=== PATIENT | female | born 1975 | race Caucasian/White ===

== ENCOUNTER 2017-11-19 14:40 | Emergency (ER) | payer SELFPAY ==
[~2017-11-19] VITALS: Ht 170.2 cm; Wt 132.0 kg
[~2017-11-19 14:40] MED LIST: ASPI1POW8 PO; NABU1TAB37 PO
[2017-11-19 14:43] VITALS: BP 181/90; PULSE 90; RESP 18; TEMP 98.1; O2SAT 97
[2017-11-19] MEDS ORDERED: SODIUM CHLOR 0.9% 1000 ML INJ 1,000 ML IV SCH (14:58)
[2017-11-19] MEDS ORDERED: SODIUM CHLORIDE 0.9% FLUSH 10 ML FLUSH IV FLUSH PRN (15:00)
[2017-11-19] MEDS ORDERED: PROMETHAZINE INJ 25 MG/ML VIAL IM ONE (15:00)
--- NOTE | 2017-11-19 15:16 | PD ---
HPI Chief Complaint: GI Complaint Time Seen by Provider: 14:58 Travel History International Travel<30 days: No Contact w/Intl Traveler<30days: No Traveled to known affect area: No History of Present Illness HPI 42-year-old female patient with history of diverticulitis, presents to the ER today for several days history of nausea, vomiting, diarrhea, and 8 out of 10 lower abdominal pains that started yesterday. She denies any fevers. She denies any other symptoms. She states that it feels similar to the past episode of diverticulitis. She does not know of any exacerbating or relieving factors. She denies any sick contacts or bad food exposure. Modifying Factors: None Associated Signs & Symptoms: Nausea, vomiting, diarrhea, abdominal pain Risk Factors: History of diverticulitis PFSH Past Medical History Diminished Hearing: No Diverticulitis: Yes Influenza Vaccination: No ?: Not Past Surgical History Surgical History: No Previous Surgery Hysterectomy: Yes Social History Alcohol Use: No Tobacco Use: No Allergies-Medications (Allergen,Severity, Reaction): Coded Allergies: cortisone (Unverified Allergy, Severe, HIVES AND DELUSIONS, 11/19/17) Reported Meds & Prescriptions Reported Meds & Active Scripts Active No Active Prescriptions or Reported Medications Review of Systems Except as stated in HPI: all other systems reviewed are Neg Physical Exam Narrative GENERAL: Well-developed middle-age female patient currently in moderate distress. Awake and oriented 3. SKIN: Focused skin assessment warm/dry. HEAD: Atraumatic. Normocephalic. EYES: Pupils equal and round. No scleral icterus. No injection or drainage. ENT: No nasal bleeding or discharge. Mucous membranes pink and moist. NECK: Trachea midline. No JVD. Supple. CARDIOVASCULAR: Regular rate and rhythm. No murmur appreciated. RESPIRATORY: No accessory muscle use. Clear to auscultation. Breath sounds equal bilaterally. GASTROINTESTINAL: Abdomen soft, mild lower abdominal tenderness without guarding rebound, nondistended. Hepatic and splenic margins not palpable. MUSCULOSKELETAL: No obvious deformities. No clubbing. No cyanosis. No edema. NEUROLOGICAL: Awake and alert. No obvious cranial nerve deficits. Motor grossly within normal limits. Normal speech. PSYCHIATRIC: Appropriate mood and affect; insight and judgment normal. Data Data Last Documented VS Vital Signs Date Time Temp Pulse Resp B/P (MAP) Pulse Ox O2 Delivery O2 Flow Rate FiO2 11/19/17 17:19 70 18 167/69 (101) 99 Room Air 11/19/17 14:43 98.1 Orders Orders Complete Blood Count With Diff (11/19/17 14:58) Comprehensive Metabolic Panel (11/19/17 14:58) Lipase (11/19/17 14:58) Urinalysis - C+S If Indicated (11/19/17 14:58) Ct Abd/Pel W Iv Contrast(Rout) (11/19/17 14:58) Iv Access Insert/Monitor (11/19/17 14:58) Ecg Monitoring (11/19/17 14:58) Oximetry (11/19/17 14:58) Sodium Chlor 0.9% 1000 Ml Inj (Ns 1000 M (11/19/17 14:58) Sodium Chloride 0.9% Flush (Ns Flush) (11/19/17 15:00) Promethazine Inj (Phenergan Inj) (11/19/17 15:00) Dicyclomine Inj (Bentyl Inj) (11/19/17 15:30) Ondansetron Inj (Zofran Inj) (11/19/17 15:45) Potassium Chlor 20 Meq Premix (Kcl 20 Me (11/19/17 16:00) Morphine Inj (Morphine Inj) (11/19/17 16:30) Metoclopramide Inj (Reglan Inj) (11/19/17 16:30) Iohexol 350 Inj (Omnipaque 350 Inj) (11/19/17 16:40) Ketorolac Inj (Toradol Inj) (11/19/17 17:30) Ed Discharge Order (11/19/17 17:21) Labs Laboratory Tests Test 11/19/17 15:10 11/19/17 15:20 Urine Color YELLOW Urine Turbidity CLEAR Urine pH 5.5 Urine Specific [place] GREATER/EQUAL 1.030 Urine Protein 30 mg/dL Urine Glucose (UA) NEG mg/dL Urine Ketones 40 mg/dL Urine Occult Blood SMALL Urine Nitrite NEG Urine Bilirubin NEG Urine Urobilinogen 0.2 MG/DL Urine Leukocyte Esterase NEG Urine RBC 3-5 /hpf Urine WBC 0-2 /hpf Urine Squamous Epithelial Cells 0-5 /hpf Urine Bacteria NONE /hpf Microscopic Urinalysis Comment CULT NOT INDICATED White Blood Count 12.3 TH/MM3 Red Blood Count 5.18 MIL/MM3 Hemoglobin 15.4 GM/DL Hematocrit 47.0 % Mean Corpuscular Volume 90.7 FL Mean Corpuscular Hemoglobin 29.8 PG Mean Corpuscular Hemoglobin Concent 32.9 % Red Cell Distribution Width 12.4 % Platelet Count 231 TH/MM3 Mean Platelet Volume 7.3 FL Neutrophils (%) (Auto) 88.7 % Lymphocytes (%) (Auto) 6.9 % Monocytes (%) (Auto) 3.7 % Eosinophils (%) (Auto) 0.5 % Basophils (%) (Auto) 0.2 % Neutrophils # (Auto) 10.9 TH/MM3 Lymphocytes # (Auto) 0.8 TH/MM3 Monocytes # (Auto) 0.5 TH/MM3 Eosinophils # (Auto) 0.1 TH/MM3 Basophils # (Auto) 0.0 TH/MM3 CBC Comment DIFF FINAL Differential Comment Blood Urea Nitrogen 11 MG/DL Creatinine 1.10 MG/DL Random Glucose 137 MG/DL Total Protein 9.0 GM/DL Albumin 4.3 GM/DL Calcium Level 9.5 MG/DL Alkaline Phosphatase 107 U/L Aspartate Amino Transf (AST/SGOT) 20 U/L Alanine Aminotransferase (ALT/SGPT) 26 U/L Total Bilirubin 0.5 MG/DL Sodium Level 139 MEQ/L Potassium Level 2.9 MEQ/L Chloride Level 106 MEQ/L Carbon Dioxide Level 24.4 MEQ/L Anion Gap 9 MEQ/L Estimat Glomerular Filtration Rate 54 ML/MIN Lipase 188 U/L MDM Medical Decision Making Medical Screen Exam Complete: Yes Emergency Medical Condition: Yes Medical Record Reviewed: Yes Interpretation(s) Laboratory Tests Test 11/19/17 15:10 11/19/17 15:20 Urine Protein 30 mg/dL (NEG-TRACE) Urine Ketones 40 mg/dL (NEG) Urine Occult Blood SMALL (NEG) White Blood Count 12.3 TH/MM3 (4.0-11.0) Hemoglobin 15.4 GM/DL (11.6-15.3) Hematocrit 47.0 % (35.0-46.0) Neutrophils (%) (Auto) 88.7 % (16.0-70.0) Lymphocytes (%) (Auto) 6.9 % (9.0-44.0) Neutrophils # (Auto) 10.9 TH/MM3 (1.8-7.7) Lymphocytes # (Auto) 0.8 TH/MM3 (1.0-4.8) Creatinine 1.10 MG/DL (0.50-1.00) Random Glucose 137 MG/DL (74-106) Total Protein 9.0 GM/DL (6.4-8.2) Potassium Level 2.9 MEQ/L (3.5-5.1) Estimat Glomerular Filtration Rate 54 ML/MIN (>89) Last 24 hours Impressions Abdomen/Pelvis CT 11/19/17 1458 Signed Impressions: CONCLUSION: 1. No definite abnormality to explain the patient's. Umbilical pain identified . Specifically, no findings to indicate bowel obstruction are present. No free air or free fluid is seen. Differential Diagnosis Nausea, vomiting, diarrhea, abdominal pains: Gastroenteritis versus diverticulitis versus UTI versus other acute intra-abdominal processes Narrative Course Work shows hypokalemia and IV fluids and IV potassium was CAT scan did not show any signs of acute intra-abdominal processes. No signs of diverticulitis. At this point, patient had been given nausea medications, Phenergan, Zofran, Reglan , is not having vomiting episodes now on reevaluation at 5:20 PM. She was given fentanyl, morphine, and on reevaluation is asking for further pain medications so I can last for tonight, was given Toradol. My plan would be to release her at this point with follow-up to primary care doctor. Return for worsening in symptoms as necessary. The plan has been discussed with the patient and she states understanding. Diagnosis Primary Impression: Nausea and vomiting Med/Other Pt SpecificInfo: Prescription(s) given Scripts Dicyclomine (Bentyl) 10 Mg Cap 10 MG PO TID Y for Bowel Management, #12 CAP 0 Refills Prov: Dudley Pena MD 11/19/17 Loperamide (Imodium A-D) 2 Mg Capsule 2 MG PO Q6H Y for DIARRHEA, #12 CAP 0 Refills Prov: Dudley Pena MD 11/19/17 Ondansetron Odt (Zofran Odt) 4 Mg Tab 4 MG SL Q6HR Y for Nausea/Vomiting, #7 TAB 0 Refills Prov: Dudley Pena MD 11/19/17 Disposition: 01 DISCHARGE HOME Condition: Stable Dudley Pena MD Nov 19, 2017 15:16
[2017-11-19 15:18] LABS: BILIRUBIN, URINE NEG (NEG); BLOOD, URINE SMALL (NEG); GLUCOSE,URINE NEG (NEG); KETONE, URINE 40 mg/dL (NEG); NITRITE,URINE NEG (NEG); PH, URINE 5.5 (5.0-8.5); URINE COLOR YELLOW (YELLW/STRAW); URINE LEUKOCYTE ESTERASE NEG (NEG)
[2017-11-19 15:24] LABS: SQUAMOUS EPITHELIAL CELL URINE 0-5 /hpf (0-5); WBC, URINE 0-2 /hpf (0-5)
[2017-11-19 15:29] LABS: AUTOMATED NEUTROPHIL # 10.9 TH/MM3 (1.8-7.7); BASOPHIL % 0.2 % (0.0-2.0); EOSINOPHIL # 0.1 TH/MM3 (0-0.4); EOSINOPHIL % 0.5 % (0.0-4.0); HEMOGLOBIN 15.4 GM/DL (11.6-15.3); LYMPH % 6.9 % (9.0-44.0); LYMPHOCYTE # 0.8 TH/MM3 (1.0-4.8); MEAN CELL VOLUME 90.7 FL (80.0-100.0); MEAN CORPUSCULAR HEMOGLOBIN 29.8 PG (27.0-34.0); MEAN CORPUSCULAR HGB CONC 32.9 % (32.0-36.0); MEAN PLATELET VOLUME 7.3 FL (7.0-11.0); MONO % 3.7 % (0.0-8.0); MONOCYTE # 0.5 TH/MM3 (0-0.9); NEUT % 88.7 % (16.0-70.0); PLATELET COUNT 231 TH/MM3 (150-450); RED BLOOD COUNT 5.18 MIL/MM3 (4.00-5.30); RED CELL DISTRIBUTION WIDTH 12.4 % (11.6-17.2); WHITE BLOOD COUNT 12.3 TH/MM3 (4.0-11.0)
[2017-11-19] MEDS ORDERED: DICYCLOMINE HCL 20 MG/2 ML VIAL IM ONE (15:30)
[2017-11-19] MEDS ORDERED: ONDANSETRON HCL 4 MG/2 ML VIAL IV PUSH ONE (15:45)
[2017-11-19 15:50] LABS: ALBUMIN 4.3 GM/DL (3.4-5.0); ALT (GPT) 26 U/L (10-53); AST (GOT) 20 U/L (15-37); BICARBONATE 24.4 MEQ/L (21.0-32.0); BLOOD UREA NITROGEN 11 MG/DL (7-18); CALCIUM 9.5 MG/DL (8.5-10.1); CHLORIDE 106 MEQ/L (98-107); GLOMERULAR FILTRATION RATE 54 ML/MIN (>89); GLUCOSE,RANDOM 137 MG/DL (74-106); SODIUM (NA) 139 MEQ/L (136-145); TOTAL BILIRUBIN ADULT 0.5 MG/DL (0.2-1.0)
[2017-11-19 15:53] LABS: ALKALINE PHOSPHATASE 107 U/L (45-117)
[2017-11-19] MEDS ORDERED: POTASSIUM CHLOR 20 MEQ PREMIX 100 ML IV ONE (16:00)
[2017-11-19] MEDS ORDERED: MORPHINE SULFATE 4 MG/ML INJ IV PUSH ONE (16:30)
[2017-11-19] MEDS ORDERED: METOCLOPRAMIDE HCL 10 MG/2 ML VIAL IV PUSH ONE (16:30)
[2017-11-19] MEDS ORDERED: IOHEXOL 350 MG/ML 10 ML VIAL (for RAD DIAG) IVCONTRAST ONE (16:40)
--- NOTE | 2017-11-19 17:12 | RADRPT ---
EXAM DATE: 11/19/2017 4:40 PM EDT AGE/SEX: 42 years / Female INDICATIONS: Periumbilical pain. Nausea and vomiting. CLINICAL DATA: This is the patient's initial encounter. Patient reports that signs and symptoms have been present for 1 day and indicates a pain score of 8/10. MEDICAL/SURGICAL HISTORY: Diverticulitis. Hysterectomy. ORAL CONTRAST: No oral contrast ingested. RADIATION DOSE: 26.56 CTDI (mGy) ; Patient body habitus COMPARISON: [facility], CT ABDOMEN & PELVIS W CONTRAST, 06/11/2015. . TECHNIQUE: Multiple contiguous axial images were obtained through the abdomen and pelvis following b olus infusion of 95 ml Omnipaque 350 (iohexol) nonionic water-soluble contrast as a single exam dos e. No oral contrast ingested. Using automated exposure control and adjustment of the mA and/or kV ac cording to patient size, radiation dose was kept as low as reasonably achievable to obtain optimal di agnostic quality images. DICOM format image data is available electronically for review and comparis on. FINDINGS: The limited portion of lung base visualized is clear. The appearance of the liver, spleen, pancreas, adrenal glands and kidneys is within normal limits. The patient is post cholecystectomy. The abdominal aorta is normal in caliber. No retroperitoneal lymphadenopathy is identified. The graft the visualized loops of small and large bowel in the upper abdomen are unremarkable. There is no christiane e air free fluid present. There is no free fluid within the pelvis. No iliac or inguinal adenopathy is seen. The loops of small and large bowel within the pelvis are unremarkable. The visualized bony structures demonstrate degenerative changes but are otherwise intact. CONCLUSION: 1. No definite abnormality to explain the patient's. Umbilical pain identified. Specifically, no fin dings to indicate bowel obstruction are present. No free air or free fluid is seen. Electronically signed by: Denis Holley MD 11/19/2017 5:10 PM EDT
[2017-11-19 17:19] VITALS: BP 167/69; PULSE 70; RESP 18; O2SAT 99
[2017-11-19] MEDS ORDERED: ZOFR4TAB3 SL (17:26)
[2017-11-19] MEDS ORDERED: DICY10 PO (17:26)
[2017-11-19] MEDS ORDERED: LOPE-1 PO (17:26)
[2017-11-19] MEDS ORDERED: KETOROLAC TROMETHAMINE 30 MG/ML (IVP) VIAL IV PUSH ONE (17:30)
[2017-11-19 18:01] VITALS: RESP 18
== END 2017-11-19 18:15 | disposition home or self-care (01) ==
LOC: PHED 14:40
DX: R11.2 Nausea with vomiting, unspecified (principal); R19.7 Diarrhea, unspecified; R10.30 Lower abdominal pain, unspecified; E87.6 Hypokalemia; Z87.19 Personal history of other diseases of the digestive system
CPT/HCPCS: 74177; 80053; 81001; 83690; 85025; 96361; 96365; 96366; 96372; 96375; 99285; J0500; J1885; J2270; J2405; J2550; J2765; J3480; J7030; Q9967